=== PATIENT | female | born 1970 | race Hispanic/Latino ===

== ENCOUNTER → 2018-03-16 | Outpatient (CLI) | payer OTHER ==
[~2018-03-16] MED LIST: DIATRIZOATE MEGL/DIATRIZOA SOD 30 ML BTL PO ONE; IOPAMIDOL 370 MG/ML 200 ML INFUS..BTL INJ ONE; SODIUM CHLORIDE 0.9% 50ML 50 ML ONE
--- NOTE | 2018-03-16 10:44 | Diagnostic Imaging Report ---
PROCEDURE: CT ABDOMEN AND PELVIS WITH CONTRAST TECHNIQUE: The abdomen and pelvis were scanned utilizing a multidetector helical scanner from the diaphragm to the lesser trochanter after the IV administration of 100 cc of Isovue 370 and the oral administration of 900 cc of Gastrografin and water. Coronal and sagittal multiplanar reformations were obtained. COMPARISON: None. INDICATIONS: HEMATOCHEZIA FINDINGS: LOWER THORAX: Normal. HEPATOBILIARY: No focal hepatic lesions. No biliary ductal dilatation. SPLEEN: No splenomegaly. PANCREAS: No focal masses or ductal dilatation. ADRENALS: No adrenal nodules. KIDNEYS/URETERS: No hydronephrosis, stones, or solid mass lesions. PELVIC ORGANS/BLADDER: Unremarkable. PERITONEUM / RETROPERITONEUM: No free air or fluid. LYMPH NODES: No lymphadenopathy. Calcified structures in the left lower abdomen on series 2, image 68, may represent calcified lymph nodes or granulomas. VESSELS: Unremarkable. GI TRACT: There is mild sigmoid colonic wall thickening with mild prominence of the adjacent mesenteric vasculature and mild inflammatory changes. No evidence of diverticula. BONES AND SOFT TISSUES: Unremarkable. IMPRESSION: Mild sigmoid colonic wall thickening with surrounding inflammatory change, which may represent infectious or inflammatory colitis. Dictated by: MASON DODSON M.D. on 03/16/2018 at 10:51 Electronically approved by: MASON DODSON M.D. on 03/16/2018 at 10:51
== END ==
LOC: CT 07:58
PROVIDERS: ATTEND Internal Medicine Gastroenterology
DX: K92.1 Melena (principal)
CPT/HCPCS: 74177; Q9967